=== PATIENT | male | born 1975 ===

== ENCOUNTER → 2021-07-31 01:38 | Outpatient (CLI) | payer BC, SELFPAY ==
--- NOTE | 2021-07-31 07:45 | DI.MRI_ITS ---
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 COMPARISON: DX XR FOOT/ANKLE 5 VIEWS LEFT from 07/08/2021 FINDINGS: SKIN AND SUBCUTANEOUS FAT: There are no skin ulcers nor subcutaneous tracts. MARROW:There is no evidence of fracture, bone contusion, nor osteochondral defects.. There are no si gnificant osseous lesions. No abnormal findings in the talar dome. There is no evidence of osseous tarsal coalition. No evidence of osteomyelitis. There is mild intraosseous edema in the inner aspect of the lateral malleolus ARTICULATIONS: There are mild degenerative changes in the tibiotalar joint. No prominent ankle joint effusion. No obvious loose intra-articular body. No evidence of para-articular ganglion. Subtalar joint appears unremarkable. Talonavicular and calcaneocuboid joints appear unremarkable. M ild degenerative change evident at the articulation between the distal navicular and medial cuneiform . No abnormal intraosseous signal in the metatarsal bases. Main Lisfranc ligament appears intact. SINUS TARSI: No loss of fat signal to suggest sinus tarsi syndrome. No evidence of sinus tarsi gangl ion cyst. LIGAMENTS: Anterior and posterior tibiofibular ligaments appear intact. Anterior and posterior talofibular ligaments are intact. Calcaneofibular ligament appears intact. On the medial aspect of the ankle there is no obvious abnormality in the deltoid ligament. PLANTAR FASCIA: There is some thickening of the medial band of the plantar fascia and signal abnormal ity within the plantar fascia at its attachment to inferior calcaneal spur region. Findings are cons istent with plantar fasciitis. There is a 5 millimeter inferior calcaneal spur evident. ACHILLES TENDON: There is lung truly orientated signal abnormality in the Achilles tendon, consistent with element of tendinitis. There is, however, no evidence of thickening of the Achilles tendon and no high-grade tear of this structure. There is trace fluid in the retrocalcaneal bursa. MEDIAL TENDONS: Tibialis posterior tendon exhibits some increased signal at its insertion and mild tenosynovitis. No abnormal intraosseous signal evident within the navicular tuberosity. No obvious accessory ossicle nor sesamoid bone at the insertional aspect. Flexor digitorum longus appears intact Flexor hallucis longus appears intact. LATERAL TENDONS: Peroneus longus and brevis tendons are intact. No displacement. No tears nor tenosynovitis. EXTENSOR-DORSAL TENDONS: No tears nor tenosynovitis. IMPRESSION: 1. There is thickening and abnormal signal in the plantar fascia consistent with plantar fasciitis. There is also a 5-6 millimeter inferior calcaneal spur. 2. Lung truly orientated signal abnormality is evident in the non thickened Achilles tendon. Consist ent with element of tendinitis. There is no high-grade tear of this structure. 3. There are mild degenerative changes in the tibiotalar-ankle joint. There is no prominent joint ef fusion. No evidence of para-articular ganglion cysts. 4. Mild increased signal within the proximal aspect of the medial cuneiform consistent with mild dege nerative changes. There is no formed subarticular cyst at this level. No abnormal signal elsewhere in the cuneiform bones. DATA REPOSITORY:
== END ==
PROVIDERS: Visit Provider Orthopaedic Surgery
DX: M25.572 Pain in left ankle and joints of left foot (principal); M94.272 Chondromalacia, left ankle and joints of left foot; M72.2 Plantar fascial fibromatosis; M77.32 Calcaneal spur, left foot; M76.62 Achilles tendinitis, left leg; M19.072 Primary osteoarthritis, left ankle and foot
CPT/HCPCS: 73721